=== PATIENT | female | born 1975 ===

== ENCOUNTER 2017-05-01 07:52 | Day surgery (SDC) | payer BC ==
[2017-04-30 11:12] VITALS: BMI 20.5
[2017-05-01] MEDS ORDERED: Lactated Ringer's 1,000 ML IV ONE ×2 (09:00→10:40)
[2017-05-01] MEDS ORDERED: Bupivacaine 0.5% Inj(30mL) ONE (09:19)
[2017-05-01] MEDS ORDERED: ceFAZolin IV 1 gm in Dextrose 1 GM/50 ML BAG IVPB ONE (09:19)
[2017-05-01 09:32] LABS: HEMATOCRIT 38.1 % (34.0-47.0); MEAN CELL VOLUME 90.8 fl (81.0-99.0); MEAN CORPUSCULAR HEMOGLOBIN 31.2 pg (27.0-31.0); MEAN CORPUSCULAR HGB CONC 34.4 g/dL (33.0-37.0); RED CELL DISTRIBUTION WIDTH 12.5 % (11.5-14.5); WHITE BLOOD COUNT 9.8 K/uL (4.8-10.8)
--- NOTE | 2017-05-01 10:04 | CP.SDSHP ---
Same Day Surgery H & P - History Proposed Procedure: Robotic cystectomy Pre-Op Diagnosis: Persistent ovarian cyst - Allergies Allergies: Allergies No Known Allergies Allergy (Verified 04/30/17 11:12) - Current Medications Current Medications: None - Physical Exam Vital Signs: Vital Signs 05/01/17 08:59 Temperature 98 F Pulse Rate 77 Respiratory 18 Rate Blood Pressure 113/62 O2 Sat by Pulse 98 Oximetry - Impression Impression: 42-year-old female with persistent ovarian cyst informed consent was obtained for cystectomy and possible oophorectomy. I discussed risks benefits and alternatives to surgery and the patient agreed to plan of care - Date & Time Date: 05/01/17 Time: 10:04 Short Stay Discharge - Short Stay Discharge Admitting Diagnosis/Reason for Visit: N83.209 R10.30 Disposition: HOME/ ROUTINE Referrals: Nica Brooke MD [Primary Care Provider] -
[2017-05-01] MEDS ORDERED: ePHEDrine 50 mg/ml Inj ONE (10:06)
[2017-05-01] MEDS ORDERED: Propofol 10 mg/ml Inj (20 ML) ONE (10:06)
[2017-05-01] MEDS ORDERED: Succinylcholine 200 mg/10 ml Inj IV ONE (10:06)
[2017-05-01] MEDS ORDERED: Rocuronium 10 mg/ml (5 ml) ONE (10:06)
[2017-05-01] MEDS ORDERED: Midazolam 2 MG/2 ML VIAL ONE (10:14)
[2017-05-01] MEDS ORDERED: Neostigmine Methylsulfate 2 MG/2 ML ML IV ONE (11:17)
[2017-05-01] MEDS ORDERED: HYDROmorphone 0.5 mg/0.5 ml ISec IVP PRN ×2 (11:44→13:05)
[2017-05-01] MEDS ORDERED: Oxycodone/Acetaminophen 5/325 mg Tab PO ONE (12:44)
--- NOTE | 2017-05-01 12:44 | CP.SDSHP ---
Same Day Surgery H & P - Allergies Allergies: Allergies No Known Allergies Allergy (Verified 04/30/17 11:12) - Physical Exam Vital Signs: Vital Signs 05/01/17 05/01/17 05/01/17 08:59 10:00 11:35 Temperature 98 F 97.1 F L Pulse Rate 77 77 112 H Respiratory 18 18 Rate Blood Pressure 113/62 123/76 O2 Sat by Pulse 98 100 Oximetry Short Stay Discharge - Short Stay Discharge Admitting Diagnosis/Reason for Visit: N83.209 R10.30 Referrals: Nica Brooke MD [Primary Care Provider] - Additional Instructions (Diet, Activity): Patient status post operative laparoscopy lysis of adhesions and resection of endometriosis secondary to pelvic pain Patient doing well. Discharged home Percocet for pain, Motrin as needed, No heavy lifting Follow-up one week
[2017-05-01 13:54] VITALS: RESP 18
[2017-05-01 14:50] VITALS: O2SAT 99
[2017-05-01 15:57] VITALS: BP 112/76; PULSE 82; TEMP 98
--- NOTE | 2017-05-06 08:25 | OP ---
PROCEDURE DATE: 05/01/2017 PREOPERATIVE DIAGNOSES: Pelvic pain, ovarian cyst. POSTOPERATIVE DIAGNOSES: Anterior bladder adhesions, left uterosacral endometriosis. Normal uterus, tubes and ovaries. OPERATION PERFORMED: Robotic-assisted laparoscopy, resection of endometriosis and lysis of anterior bladder adhesions. SURGEON: Nica Brooke MD SPOUT TENDER: Rachel Carmichael MD. Dr. Carmichael was instrumental in the care of patient, helped to create the exposure. She was helpful in retraction and helpful in creating exposure and closure. The patient's procedure would not have been possible without her assistance. TYPE OF ANESTHESIA: General. ANESTHESIA ADMINISTERED BY: Rigo Michelle MD. ESTIMATED BLOOD LOSS: Minimal. The patient received approximately 1500 mL of D5LR intraoperatively. OPERATIVE FINDINGS: Anterior bladder adhesions extensive, normal uterus, tubes, ovaries and left uterosacral ligament endometriosis. DESCRIPTION OF PROCEDURE: After informed consent was obtained, the patient was taken to the operating room where she was placed in dorsal lithotomy position. She was prepped and draped in the usual sterile fashion. Attention was then turned to the vagina where a weighted speculum was inserted into the vagina. Cervix was visualized, grasped with a single-toothed tenaculum. The cervix was gently dilated. HUMI uterine manipulator was inserted into the uterine cavity to manipulate the uterus. Attention was then turned to the urethra, where a Randall catheter was inserted to monitor the patient's urinary output. Attention was then turned to the umbilical fold, where Marcaine was infused, an 8 mm incision was made, the abdomen was then tented upward and the Veress needle was introduced into the abdominal cavity. Placement was confirmed with a fluid-filled syringe. The abdomen was then insufflated to 15 mmHg. The Veress needle was removed and an 8 mm robotic port was introduced into the abdominal cavity. Placement was confirmed with laparoscope. The abdomen was then surveyed with the findings noted above. Attention was then turned to approximately 5 cm superior to the right anterior iliac crest, Marcaine was infused and an 8 mm incision was made and robotic port was introduced into direct visualization. A similar procedure was performed on the left. The patient was placed in steep Trendelenburg. The abdomen was surveyed. There was noted extensive anterior abdominal wall adhesions, bladder adhesions and left uterosacral ligament endometriosis. The patient was then placed in steep Trendelenburg. The instruments used for the surgery was a scissor and a PK dissector. The robot was brought along the patient's side and docked without complications. I then broke scrub and proceeded surgical console. Attention was then turned to the anterior bladder adhesions. Then, we mobilized using a series of both sharp and blunt dissection. Attention was then turned to the uterosacral ligament, where endometriosis was identified. It was grasped with PK dissector elevated up and dissected away with the scissor. Specimen sent to pathology for evaluation. The abdomen was then irrigated, the irrigant was removed with a suction device. The hemostasis was noted and the procedure was terminated. All instruments were then removed from the abdomen and the robot was undocked successfully. The instruments were removed from the patient's abdomen and the skin was closed with Dermabond. All sponges, lap, needles and instrument counts were correct x2 and the patient was taken to the recovery room in awake and stable condition. Thank you very much. Nica Brooke MD
== END 2017-05-01 16:30 | disposition home or self-care (01) ==
LOC: H.OPSURG 07:52
PROVIDERS: ATTEND Obstetrics & Gynecology Gynecology
DX: N80.0 Endometriosis of uterus (principal); N83.209 Unspecified ovarian cyst, unspecified side; R10.2 Pelvic and perineal pain; N32.89 Other specified disorders of bladder
CPT/HCPCS: 36415; 53899; 58662; 85027; 86850; 86900; 88305; J0330; J0690; J1170; J2001; J2250; J2405; J2704; J2710; J3010; J7120